=== PATIENT | female | born 1960 | race Caucasian/White ===

== ENCOUNTER 2020-10-22 12:00 | Emergency (ER) | payer BC ==
[~2020-10-22 12:00] MED LIST: AMBIEN10 MG PO; NORVASC10 M1 PO
[2020-10-22] MEDS ORDERED: LOSARTAN POTASS1 TA2 PO (12:23)
[2020-10-22 12:44] LABS: EOS # 0.3 (0.04-0.40); EOS % 2.5 % (1.0-5.0); HEMATOCRIT 40.4 % (37.0-47.0); HEMOGLOBIN 13.5 g/dL (12.5-16.0); LYMPH# 3.4 (1.50-4.00); MEAN CELL VOLUME 87 fl (78-100); MEAN CORPUSCULAR HEMOGLOBIN 29 pg (27-31); MEAN CORPUSCULAR HGB CONC 33 g/dL (33-37); MONO # 0.9 (0.20-0.80); NEU # 5.3 (1.40-6.50); PLATELET COUNT 308 K/mm3 (130-400); RED BLOOD COUNT 4.65 M/mm3 (4.10-5.30); RED CELL DISTRIBUTION WIDTH 13.1 % (11.5-14.5); WHITE BLOOD COUNT 9.9 K/mm3 (4.8-10.8)
[2020-10-22 12:51] LABS: ALBUMIN 4.1 g/dL (3.5-5.0)
[2020-10-22 12:52] LABS: CALCIUM 9.5 mg/dL (8.3-10.5)
[2020-10-22 12:55] LABS: TOTAL BILIRUBIN 0.3 mg/dL (0.2-1.2)
[2020-10-22 13:20] LABS: PARTIAL THROMBOPLASTIN TIME 22.4 SECONDS (21.0-32.0); PROTHROMBIN TIME 9.2 SECONDS (9.0-12.0)
[2020-10-22 13:25] LABS: D-DIMER 0.27 mg/L FEU (0.15-0.50)
[2020-10-22 19:08] VITALS: BP 171/105
== END 2020-10-22 19:21 | disposition short-term general hospital (02) ==
LOC: ED 12:00
PROVIDERS: Family Medicine
DX: I21.4 Non-ST elevation (NSTEMI) myocardial infarction (principal); I10 Essential (primary) hypertension; Z20.828 Contact with and (suspected) exposure to other viral communicable diseases; Z88.0 Allergy status to penicillin
CPT/HCPCS: J1644

== ENCOUNTER 2020-12-27 10:58 | Outpatient (RCR) | payer BC ==
[~2020-12-27 10:58] MED LIST changes: +LOSARTAN POTASS1 TA2 PO
== END 2021-03-27 | disposition home or self-care (01) ==
LOC: CARDREHAB
DX: Z48.812 Encounter for surgical aftercare following surgery on the circulatory system (principal); Z95.1 Presence of aortocoronary bypass graft

== ENCOUNTER 2021-06-28 17:20 | Emergency (ER) | payer BC ==
[2021-06-28 18:00] LABS: BASO # 0.03 (0.02-0.10); EOS # 0.19 (0.04-0.40); EOS % 2.5 % (1.0-5.0); HEMOGLOBIN 13.1 g/dL (12.5-16.0); LYMPH# 2.58 (1.50-4.00); MEAN CELL VOLUME 90 fl (78-100); MEAN CORPUSCULAR HEMOGLOBIN 29 pg (27-31); MEAN CORPUSCULAR HGB CONC 33 g/dL (33-37); MONO # 0.79 (0.20-0.80); NEU # 4.03 (1.40-6.50); PLATELET COUNT 266 K/mm3 (130-400); RED BLOOD COUNT 4.47 M/mm3 (4.10-5.30); WHITE BLOOD COUNT 7.6 K/mm3 (4.8-10.8)
[2021-06-28 18:14] LABS: ALBUMIN 4.1 g/dL (3.5-5.0); POTASSIUM 4.4 mmol/L (3.5-5.1)
[2021-06-28 18:15] LABS: SODIUM 138 mmol/L (136-145)
[2021-06-28 18:16] LABS: CALCIUM 9.5 mg/dL (8.3-10.5)
[2021-06-28 18:17] LABS: GLUCOSE 122 mg/dL (65-105)
[2021-06-28 18:18] LABS: CARBON DIOXIDE 25 mmol/L (22-29)
[2021-06-28 18:19] LABS: TOTAL BILIRUBIN 0.5 mg/dL (0.2-1.2)
[2021-06-28 18:22] LABS: AST-SGOT 19 U/L (5-34)
[2021-06-28] MEDS ORDERED: OZEMPIC0.25 MG/0. SQ (18:22)
[2021-06-28] MEDS ORDERED: LEVOTHYROXIN0.025 MG PO (18:22)
[2021-06-28] MEDS ORDERED: ATORVASTATIN CA80 MG PO (18:22)
[2021-06-28 18:23] LABS: ALT/SGPT 17 U/L (0-55)
[2021-06-28] MEDS ORDERED: CLOPIDOGREL75 M2 PO (18:23)
[2021-06-28] MEDS ORDERED: CARVEDILOL12.5 MG PO (18:23)
[2021-06-28] MEDS ORDERED: CALCIUM 500 +1 EAC1 PO (18:24)
[2021-06-28] MEDS ORDERED: GOOD SENSE ASPI81 M1 PO (18:24)
[2021-06-28] MEDS ORDERED: ONE-DAILY MULT1 EAC1 PO (18:24)
[2021-06-28 18:30] LABS: TROPONIN-I < 0.03 ng/mL (<0.030)
[2021-06-28 19:46] LABS: URINE APPEARANCE CLEAR; URINE BILIRUBIN NEGATIVE (NEGATIVE); URINE BLOOD NEGATIVE (NEGATIVE); URINE COLOR YELLOW; URINE GLUCOSE NEGATIVE (NEGATIVE); URINE KETONE NEGATIVE (NEGATIVE); URINE LEUKOCYTE ESTERASE NEGATIVE (NEGATIVE); URINE NITRATE NEGATIVE (NEGATIVE); URINE PROTEIN(semi-quant) NEGATIVE (NEGATIVE); URINE UROBILINOGEN NORMAL (NORMAL)
[2021-06-28 21:03] VITALS: BP 136/88
== END 2021-06-28 20:55 | disposition home or self-care (01) ==
LOC: ED 17:20
PROVIDERS: Physician Assistant
DX: N28.9 Disorder of kidney and ureter, unspecified (principal); R79.89 Other specified abnormal findings of blood chemistry; E03.9 Hypothyroidism, unspecified; E11.9 Type 2 diabetes mellitus without complications; I25.2 Old myocardial infarction; Z79.899 Other long term (current) drug therapy; Z86.73 Personal history of transient ischemic attack (TIA), and cerebral infarction without residual deficits; Z79.82 Long term (current) use of aspirin; Z79.02 Long term (current) use of antithrombotics/antiplatelets; Z79.890 Hormone replacement therapy; Z79.4 Long term (current) use of insulin

== ENCOUNTER → 2024-03-26 | Outpatient (CLI) | payer BC ==
[~2024-03-26] MED LIST changes: +ATORVASTATIN CA80 MG PO; +CALCIUM 500 +1 EAC1 PO; +CARVEDILOL12.5 MG PO; +CLOPIDOGREL75 M2 PO; +GOOD SENSE ASPI81 M1 PO; +LEVOTHYROXIN0.025 MG PO; +ONE-DAILY MULT1 EAC1 PO; +OZEMPIC0.25 MG/0. SQ
== END ==
LOC: RAD 16:28
DX: M51.36 Other intervertebral disc degeneration, lumbar region (principal); M51.37 Other intervertebral disc degeneration, lumbosacral region; M47.816 Spondylosis without myelopathy or radiculopathy, lumbar region; M47.817 Spondylosis without myelopathy or radiculopathy, lumbosacral region